=== PATIENT | female | born 1990 | race American Indian/Alaskan Native ===

== ENCOUNTER 2018-08-28 18:11 | Emergency (ER) | payer SELFPAY ==
[2018-08-28 18:19] VITALS: TEMP 99; O2SAT 99
--- NOTE | 2018-08-28 18:57 | ED PDOC ---
Arrival/HPI - General Chief Complaint: Trauma Time Seen by Provider: 08/28/18 18:20 Historian: Patient - History of Present Illness Narrative History of Present Illness (Text): 08/28/18 20:21 28 y/o with no significant PMH who presents to the ED c/o worsening back pain and right knee pain x 1 week s/p mechanical fall down approx 10 stairs. Pt was carrying 3 month old daughter on her chest when she slipped and fell down the flight of stairs on her back. Admits to head strike but no LOC, N/V, bruising, laceration, or persistent headache. She has been taking ibuprofen for pain every 6 hours without relief. She is able to bear weight and ambulate normally. Currently c/o right knee pain, neck pain, back pain, and L hip pain. Denies vision changes, N/V, SOB, chest pain, headache, weakness, numbness, paresthesias, weakness, urinary retention or incontinence, saddle anesthesia. Past Medical History - Provider Review Nursing Documentation Reviewed: Yes - Psychiatric Hx Psychophysiologic Disorder: No Hx Substance Use: No - Surgical History Other/Comment: BREAST IMPLANT Family/Social History - Physician Review Nursing Documentation Reviewed: Yes Family/Social History: No Known Family HX Smoking Status: Never Smoked Hx Alcohol Use: No Hx Substance Use: No Allergies/Home Meds Allergies/Adverse Reactions: Allergies No Known Allergies Allergy (Verified 08/28/18 18:12) Review of Systems - Physician Review All systems were reviewed & negative as marked: Yes - Review of Systems Constitutional: Normal Eyes: Normal. absent: Vision Changes ENT: Normal Respiratory: Normal. absent: SOB, Cough Cardiovascular: Normal. absent: Chest Pain, Palpitations, Syncope Gastrointestinal: Normal. absent: Abdominal Pain, Nausea, Vomiting Genitourinary Female: Normal. absent: Urine Output Changes, Vaginal Bleeding, Vaginal Discharge Musculoskeletal: Arthralgias (right knee, left hip, c-spine, t-spine, l-spine), Back Pain (c-spine, t-spine, l-spine), Neck Pain (c-spine, t-spine, l-spine), Myalgias. absent: Joint Swelling Skin: Normal. absent: Rash, Skin Lesions, Laceration Neurological: Normal. absent: Headache, Dizziness, Focal Weakness, Gait Changes, Speech Changes, Facial Droop, Disequilibrium, Seizure Physical Exam Vital Signs Reviewed: Yes Vital Signs Temp Pulse Resp BP Pulse Ox 08/28/18 18:13 99.0 F 91 H 16 134/90 99 Temperature: Afebrile Blood Pressure: Normal Pulse: Regular Respiratory Rate: Normal Appearance: Positive for: Well-Appearing, Non-Toxic, Comfortable Pain Distress: None Mental Status: Positive for: Alert and Oriented X 3 - Systems Exam Head: Present: Atraumatic, Normocephalic. No: Tenderness, Contusion, Swelling, Ecchymosis, Abrasion, Laceration Pupils: Present: PERRL Extroacular Muscles: Present: EOMI Conjunctiva: Present: Normal Ears: Present: Normal. No: Other (hemotypanum) Mouth: Present: Moist Mucous Membranes, Normal Lips, Normal Tounge, Normal Teeth Pharnyx: Present: Normal Nose (External): Present: Atraumatic. No: Abrasion, Contusion, Laceration Nose (Internal): Present: Normal Inspection, No Active Bleeding, Moist. No: Engorged, Edematous, Septal Hematoma, Epistaxis Neck: Present: Normal Range of Motion, MIDLINE TENDERNESS, Paraspinal Tend erness. No: Lymphadenopathy Respiratory/Chest: Present: Clear to Auscultation, Good Air Exchange. No: Respiratory Distress, Accessory Muscle Use, Decreased Breath Sounds Cardiovascular: Present: Regular Rate and Rhythm, Normal S1, S2, Peripheal Pulses Present. No: Murmurs Abdomen: Present: Normal Bowel Sounds. No: Tenderness, Distention, Peritoneal Signs Back: Present: Normal Inspection, Midline Tenderness (thoracic, lumbar), Paraspinal Tenderness Upper Extremity: Present: Normal Inspection, Normal ROM, NORMAL PULSES. No: Tenderness, Swelling, Deformity Lower Extremity: Present: Normal Inspection, NORMAL PULSES, Normal ROM. No: Tenderness, Swelling Neurological: Present: GCS=15, CN II-XII Intact, Speech Normal, Motor Func Grossly Intact, Normal Sensory Function, Normal Cerebellar Funct, Gait Normal Skin: Present: Warm, Dry, Normal Color. No: Rashes, Laceration Psychiatric: Present: Alert, Oriented x 3, Normal Insight, Normal Concentration Medical Decision Making ED Course and Treatment: 08/28/18 19:05 28 y/o with no significant PMH who presents to the ED c/o worsening back pain and right knee pain x 1 week s/p mechanical fall down approx 10 stairs. Pt was carrying 3 month old daughter on her chest when she slipped and fell down the flight of stairs on her back. Admits to head strike but no LOC, N/V, bruising, laceration, or persistent headache. She has been taking ibuprofen for pain every 6 hours without relief. She is able to bear weight and ambulate normally. Currently c/o right knee pain, neck pain, back pain, and L hip pain. Denies vision changes, N/V, SOB, chest pain, headache, weakness, numbness, paresthesias, weakness, urinary retention or incontinence, saddle anesthesia. will get poc will give tylenol for pain 08/28/18 19:27 poc negative will order CT c-spine As per Dr. Arizmendi: will order CT chest abdomen pelvis with special attention to ribs, t-spine, l- spine, and pelvis 08/28/18 20:[address] scan 08/28/18 20:56 Pt reassessed, states she has decreased pain. CT C-Spine: FINDINGS: ALIGNMENT: Straightening of normal cervical lordosis DEGENERATIVE CHANGES: No significant canal stenosis or neural foraminal narrowing evident SOFT TISSUES: The prevertebral soft tissues are within normal limits BONES: No acute fracture or aggressive appearing osseous lesion IMPRESSION: Straightening of normal cervical lordosis No other acute cervical spine abnormality. CT CHEST/ABD/PELVIS: FINDINGS: CHEST: LUNGS: No pulmonary mass. The lungs are clear. PLEURAL SPACES: No PTX evident. No pleural effusions. HEART: No cardiomegaly. LYMPH NODES: No lymphadenoopathy ABDOMEN AND PELVIS: LIVER: unremarkable. no focal lesions. GALL BLADDER AND BILE DUCTS: The gallbladder appears within normal limits. No gallstones. No biliary duct dilatation. PANCREAS: unremarkable SPLEEN: Unremarkable ADRENAL GLANDS: Unremarkable KIDNEYS, URETER, BLADDER: Unremarkable STOMACH AND BOWEL: Unremarkable appearance of stomach and bowel. No evidence of bowel obstruction. No evidence of enterocolitis or colitis. APPENDIX: No evidence of acute appendicitis on CT examination. PERITONEUM: No free fluid. No free air LYMPH NODES: No lymphadenopathy is evident VASCULATURE: No evidence of abdominal aortic aneurysm BONES: No osseuos abnormality OTHER: Numerous soft tissue nodules in the gluteal fat bilaterally IMPRESSION: No acute intra-thoracic, intra abdominal, or intra-pelvic abnormality Impression: Muscle strain Plan: Take ibuprofen every 6 hours as needed for pain Apply heat to the affected areas nightly Followup with orthopedic if pain persists Followup with primary doctor within 2 days Return to ED if symptoms persist or worsen 08/28/18 21:05 Plan discussed with pt and family who agree and understand. Pt comfortable with discharge home. Re-evaluation Time: 20:24 Reassessment Condition: Re-examined, Improved - RAD Interpretation Rock Cutter: Radiologist Disposition/Present on Arrival - Present on Arrival Any Indicators Present on Arrival: No History of DVT/PE: No History of Uncontrolled Diabetes: No Urinary Catheter: No History of Decub. Ulcer: No History Surgical Site Infection Following: None - Disposition Have Diagnosis and Disposition been Completed?: Yes Diagnosis: Muscle strain Disposition: HOME/ ROUTINE Disposition Time: 21:00 Patient Plan: Discharge Condition: IMPROVED Discharge Instructions (ExitCare): Muscle Strain Additional Instructions: Take ibuprofen every 6 hours as needed for pain Apply heat to the affected areas nightly We will call you if results change Followup with orthopedic if pain persists Followup with primary doctor within 2 days Return to ED if symptoms persist or worsen Prescriptions: Ibuprofen [Motrin Tab] 600 mg PO Q6H PRN #30 tab PRN Reason: Pain, Moderate (4-7) Referrals: Mary Farooq MD [Medical Doctor] - Follow up with primary Abilio Delcid III, MD [Medical Doctor] - Follow up with primary Forms: [employer] ([place]), WORK NOTE
[2018-08-28 22:09] VITALS: BP 130/82; PULSE 89; RESP 17
--- NOTE | 2018-08-29 09:22 | CT ---
Date of service: 08/28/2018 PROCEDURE: CT Cervical Spine without contrast HISTORY: midline tenderness s/p fall COMPARISON: None available. TECHNIQUE: Axial computed tomography images were obtained of the cervical spine without the use of intravenous contrast. Coronal and sagittal reformatted images were created and reviewed. Radiation dose: Total exam DLP = 503 mGy-cm. This CT exam was performed using one or more of the following dose reduction techniques: Automated exposure control, adjustment of the mA and/or kV according to patient size, and/or use of iterative reconstruction technique. FINDINGS: VERTEBRAE: No fracture. Normal alignment. No destructive bony lesion. There reversal of the normal lordotic curvature. This could be related to positioning or muscular spasm DISCS/SPINAL CANAL/NEURAL FORAMINA: No significant central canal or neural foraminal stenosis. Discs heights are grossly preserved. PARASPINAL SOFT TISSUES: Unremarkable. OTHER FINDINGS: The report concurs with the preliminary report IMPRESSION: Unremarkable CT of the cervical spine.
--- NOTE | 2018-08-29 09:26 | CT ---
Date of service: 08/28/2018 PROCEDURE: CT Chest, Abdomen and Pelvis without intravenous contrast HISTORY: please assess ribs, t-spine, l-spine, pelvis COMPARISON: None available. TECHNIQUE: Radiation dose: Total exam DLP = 1081 mGy-cm. This CT exam was performed using one or more of the following dose reduction techniques: Automated exposure control, adjustment of the mA and/or kV according to patient size, and/or use of iterative reconstruction technique. FINDINGS: CT CHEST WITHOUT CONTRAST: LUNGS: Clear. No nodule, mass or consolidation. MEDIASTINUM: Unremarkable. Normal caliber aorta and pulmonary arterial trunk. Normal size heart. LYMPH NODES: Unremarkable. PLEURA: Unremarkable. No pneumothorax. No pleural fluid. BONES: Unremarkable. OTHER FINDINGS: None. CT ABDOMEN AND PELVIS: LIVER: Unremarkable. No gross lesion or ductal dilatation. GALLBLADDER AND BILE DUCTS: Unremarkable. PANCREAS: Unremarkable. No gross lesion or ductal dilatation. SPLEEN: Unremarkable. ADRENALS: Unremarkable. No mass. KIDNEYS AND URETERS: Unremarkable. No hydronephrosis. No solid mass. VASCULATURE: Unremarkable. No aortic aneurysm. BOWEL: Unremarkable. No obstruction. No gross mural thickening. APPENDIX: Normal appendix. PERITONEUM: Unremarkable. No free fluid. No free air. LYMPH NODES: Unremarkable. No enlarged lymph nodes. BLADDER: Unremarkable. REPRODUCTIVE: Unremarkable. BONES: No acute fracture. OTHER FINDINGS: The report concurs with the preliminary report IMPRESSION: No acute findings
--- NOTE | 2018-08-29 11:12 | RAD ---
Date of service: 08/28/2018 PROCEDURE: Right Knee Radiographs. HISTORY: right knee pain s/p fall COMPARISON: None. FINDINGS: BONES: Normal. No fracture. JOINTS: Normal. No osteoarthritis. JOINT EFFUSION: None. OTHER FINDINGS: None. IMPRESSION: Normal radiographs of the right knee.
== END 2018-08-28 21:31 | disposition home or self-care (01) ==
LOC: ED 18:11
DX: S29.012A Strain of muscle and tendon of back wall of thorax, initial encounter (principal); W10.9XXA Fall (on) (from) unspecified stairs and steps, initial encounter; Y92.9 Unspecified place or not applicable